=== PATIENT | male | born 1985 | race Caucasian/White ===

== ENCOUNTER 2017-10-13 13:06 | Day surgery (SDC) | payer OTHER ==
[~2017-10-13 13:06] MED LIST: ATROPINE 1 MG/10 ML SYRINGE IV; CEFAZOLIN 1 GM INJ; DEXAMETHASONE 4 MG/ML 1 ML INJ; DIPHENHYDRAMINE 50 MG INJ IV; EPHEDrine SULFATE 50 MG/5 ML SYG IV; FENTAnyl 50 MCG/ML VIAL; FENTAnyl 50 MCG/ML VIAL IV; GLYCOPYRROLATE 0.4 MG INJ; HYDROmorphONE (0.2 MG/ML) 10ML SYG IV; LABETALOL HCL 20MG INJ IV; LIDOCAINE 2% (SDV) 5 ML INJ; MEPERIDINE 25 MG INJ IV; MIDAZOLAM 1 MG/ML 2 ML INJ; MIDAZOLAM 1 MG/ML 2 ML INJ IV; NEOSTIGMINE 3 MG/3 ML SYRINGE; ONDANSETRON 4 MG INJ; OXYCODONE/ACETAMINOPHEN (5/325) TAB PO; PROPOFOL 20 ML; ROCURONIUM 50 MG INJ; SUCCINYLCHOLINE CHLORIDE 100 MG/5 ML SYG IV; hydrALAzine 20 MG INJ IV; morphine (1 MG/ML) 10ML SYRINGE IV
[2017-10-13] MEDS ORDERED: ROPIVACAINE 0.5 % 30 ML VIAL ×2 (13:07→15:12)
[2017-10-13] MEDS ORDERED: NEOMYC/POLYMYX/BACIT 30 GM OINT (15:12)
[2017-10-13] MEDS ORDERED: POLYMYXIN/BACITRACIN 1L IRRIG (15:12)
[2017-10-13] MEDS: THROMBIN 5000 UNIT VIAL (16:32)
[2017-10-13] MEDS: CA CHLORIDE 10% 10 ML SYRINGE (16:33)
[2017-10-13] MEDS ORDERED: morphine 2 MG INJ IV (18:00)
[2017-10-13] MEDS: HYDROmorphONE (0.2 MG/ML) 10ML SYG IV ×4 (18:06→18:36)
[2017-10-13] MEDS: ONDANSETRON 4 MG INJ IV (18:07)
== END 2017-10-13 19:25 | disposition home or self-care (01) ==
LOC: SDS 13:06
DX: S76.111A Strain of right quadriceps muscle, fascia and tendon, initial encounter (principal); X58.XXXA Exposure to other specified factors, initial encounter
CPT/HCPCS: 27380; 82306